=== PATIENT | female | born 1995 | race Two or more races ===

== ENCOUNTER 2019-08-15 10:09 | Outpatient (CLI) | payer OTHER ==
[~2019-08-15] VITALS: Ht 172.7 cm; Wt 65.0 kg
[2019-08-15 10:34] VITALS: BP 112/67
[2019-08-18] MEDS ORDERED: SENN-92 PO (10:44)
[2019-08-18] MEDS ORDERED: IBUP-1222 PO (10:44)
[2019-08-18] MEDS ORDERED: HYDR-3240 PO (10:44)
== END 2019-08-15 12:59 | disposition home or self-care (01) ==
LOC: LDOP 10:09
PROVIDERS: ATTEND Obstetrics & Gynecology
DX: O26.893 Other specified pregnancy related conditions, third trimester (principal); R10.9 Unspecified abdominal pain; O46.93 Antepartum hemorrhage, unspecified, third trimester; Z3A.39 39 weeks gestation of pregnancy
CPT/HCPCS: 59025; 99201; G0463